=== PATIENT | female | born 1970 | race Two or more races ===

== ENCOUNTER → 2024-07-19 | Outpatient (CLI) | payer BC, SELFPAY ==
[2024-07-19 16:44] LABS: Basophils % (Auto) 1 % (0-2.5); Eosinophils # (Auto) 0.1 Thou/mm3 (0.0-0.5); Eosinophils % (Auto) 3 % (0-10); Hematocrit 42.8 % (36.0-46.0); Hemoglobin 14.3 g/dL (12.0-16.0); Immature Granulocytes % (Auto) 0 % (0-0); Immature Granulocytes Auto 0.01 Thou/mm3 (0.00-0.00); Lymphocytes % (Auto) 46 % (10-50); Mean Corpuscular HGB Conc 33.4 g/dl (31.0-37.0); Mean Corpuscular Hemoglobin 29.5 pg (25.0-35.0); Mean Corpuscular Volume 88 fL (80-100); Monocytes # (Auto) 0.4 Thou/mm3 (0.0-0.8); Monocytes % (Auto) 9 % (0-12); Neutrophils # (Auto) 1.8 Thou/mm3 (1.8-7.7); Neutrophils % (Auto) 42 % (37-80); Nucleated Red Blood Cell % 0 /100 WBC (0); Platelet Count 268 Thou/mm3 (140-440); RDW Standard Deviation 39.8 fL (36.4-46.3); Red Blood Count 4.85 Miln/mm3 (4.00-5.20); White Blood Count 4.4 Thou/mm3 (3.6-11.0)
[2024-07-19 17:09] LABS: Alanine Aminotransferase 22 U/L (10-49); Albumin, Serum 4.9 gm/dL (3.5-5.0); Alkaline Phosphatase 127 U/L (46-116); Anion Gap 9 (7-16); Aspartate Amino Transferase 18 U/L (0-34); BUN/Creatinine Ratio 24 Ratio (12-20); Bilirubin,Total 0.4 mg/dL (0.3-1.2); Blood Urea Nitrogen 17 mg/dL (9-23); Calcium 10.2 mg/dL (8.3-10.6); Calcium (Corrected) 10.2 mg/dL (8.5-10.1); Carbon Dioxide 26.8 mMol/L (20.0-31.0); Chloride 104 mMol/L (98-107); Creatinine (Component) 0.7 mg/dL (0.6-1.3); Follicle Stimulating Hormone 24.47 mIU/mL (See Note); Globulin 2.5 gm/dL (2.3-3.5); Glucose 81 mg/dL (74-106); Osmolality,Calculated 279 (275-295); Potassium 4.3 mMol/L (3.4-5.1); Sodium 140 mMol/L (136-145); Total Protein 7.4 gm/dL (5.7-8.2); eGFR > 60 See Note
[2024-07-20 13:51] LABS: Cocci Serology, IgM Negative (Negative)
[2024-07-22 14:51] LABS: Cocci Serology, IgG Negative (Negative)
[2024-07-28 06:37] LABS: DHEA Sulfate* 30 mcg/dL (8-188); Estrogen, Total, Serum* 61 pg/mL; Luteinizing Hormone* 11.6 mIU/mL; Progesterone,LC/MS* <0.1 ng/mL; Testosterone, Free,Dialysis 1.7 pg/mL (0.1-6.4); Testosterone, Total, Dialysis 13 ng/dL (2-45)
== END | disposition home or self-care (01) ==
LOC: COPL 15:45
PROVIDERS: PCP Nurse Practitioner Family; Referring Provider Nurse Practitioner Family; Visit Provider Nurse Practitioner Family
DX: Z00.00 Encounter for general adult medical examination without abnormal findings (principal); B38.89 Other forms of coccidioidomycosis; E03.9 Hypothyroidism, unspecified; R53.83 Other fatigue; N95.1 Menopausal and female climacteric states; R61 Generalized hyperhidrosis; Z13.0 Encounter for screening for diseases of the blood and blood-forming organs and certain disorders involving the immune mechanism
CPT/HCPCS: 36415; 80053; 82627; 82672; 83001; 83002; 84144; 84402; 84403; 84443; 85025; 86331; 86635

== ENCOUNTER → 2025-03-30 | Outpatient (CLI) | payer BC, SELFPAY ==
--- NOTE | 2025-03-30 08:48 | XR_ITS ---
Examination: Bilateral hands, 6 views. 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
--- NOTE | 2025-03-30 08:48 | XR_ITS ---
EXAMINATION: Bilateral 6 views TECHNIQUE: AP oblique lateral redress total 6 views Date and time: March 30, 2025, 0902 hours INDICATIONS: Bilateral wrist pain worse on the right wrist this week FINDINGS: Moderate osteopenia Bilateral significant osteoarthritis first carpometacarpal joints No fractures or dislocations. No avascular necrosis IMPRESSION: Bilateral significant osteoarthritis first carpometacarpal joint
== END | disposition home or self-care (01) ==
PROVIDERS: PCP Family Medicine; Referring Provider Nurse Practitioner Family; Visit Provider Nurse Practitioner Family
DX: M19.042 Primary osteoarthritis, left hand (principal); M19.041 Primary osteoarthritis, right hand; M18.0 Bilateral primary osteoarthritis of first carpometacarpal joints
CPT/HCPCS: 73110; 73130